=== PATIENT | male | born 1960 ===

== ENCOUNTER 2022-05-26 16:23 | Emergency (ER) | payer OTHER ==
[~2022-05-26] VITALS: Ht 170.2 cm; Wt 61.8 kg
[~2022-05-26 16:23] MED LIST: ALBU8HFA IH; ASPI-1450 PO; LEVO125T95 PO; OLAN2.5T29 PO
[2022-05-26] MEDS ORDERED: LOPERAMIDE HCL 2 MG CAPSULE PO ONE (18:00)
[2022-05-26] MEDS ORDERED: MORPHINE SULFATE 2 MG/ML SYRINGE IVP ONE (18:00)
[2022-05-26] MEDS ORDERED: ONDANSETRON HCL 4 MG/2 ML VIAL IVP ONE (18:00)
[2022-05-26 18:11] LABS: BASOPHILS % (AUTO) 0.9 % (0.0-2.0); EOSINOPHILS % (AUTO) 3.1 % (1.0-6.0); HEMATOCRIT 32.8 % (41-53); HEMOGLOBIN 10.5 g/dL (13.5-17.5); LYMPHOCYTES # (AUTO) 0.6 K/uL (1.0-4.8); LYMPHOCYTES % (AUTO) 10.8 % (22.0-44.0); MEAN CORPUSCULAR HGB CONC 32.2 G/dL (31.0-37.0); MEAN CORPUSCULAR VOLUME 97 fL (80-100); MONOCYTES # (AUTO) 0.7 K/uL (0.1-1.0); MONOCYTES % (AUTO) 11.3 % (2.0-9.0); NEUTROPHILS # (AUTO) 4.3 K/uL (1.8-7.7); NEUTROPHILS % (AUTO) 73.9 % (40.0-70.0); PLATELET COUNT (AUTO) 120 K/uL (150-450); RED BLOOD CELL COUNT(AUTO) 3.39 MIL/uL (4.50-5.90); RED CELL DISTRIBUTION WIDTH 16.9 % (11.5-14.5)
[2022-05-26 18:19] LABS: CALCIUM, TOTAL 8.9 mg/dL (8.8-10.5); CREATININE 3.99 mg/dL (0.60-1.30); POTASSIUM 4.4 mmol/L (3.5-5.1)
[2022-05-26 18:24] LABS: ALBUMIN 3.1 g/dL (3.4-5.0)
[2022-05-26] MEDS ORDERED: LOPE-232 PO (19:53)
[2022-05-26] MEDS ORDERED: ONDA-104 PO (19:53)
[2022-05-26 20:27] VITALS: BP 129/68
== END 2022-05-26 22:27 | disposition home or self-care (01) ==
LOC: EMS 16:27
DX: R11.2 Nausea with vomiting, unspecified (principal); R19.7 Diarrhea, unspecified; R10.12 Left upper quadrant pain; E11.22 Type 2 diabetes mellitus with diabetic chronic kidney disease; N18.6 End stage renal disease; I50.9 Heart failure, unspecified; F17.210 Nicotine dependence, cigarettes, uncomplicated; Z99.2 Dependence on renal dialysis; Z98.890 Other specified postprocedural states
CPT/HCPCS: 99284; 74176; 96374; 96375; 80053; 83690; 85025; 36415; J2270; J2405